=== PATIENT | female | born 1990 | race Two or more races ===

== ENCOUNTER 2021-05-08 14:30 | Inpatient (IN) | payer OTHER ==
[~2021-05-08] VITALS: Ht 167.6 cm; Wt 3.6 kg
[2021-05-13] MEDS ORDERED: PRENATAL TABLE1 EAC1 PO (00:11)
== END 2021-05-16 14:29 | DRG 788 ==
LOC: LDR 05-12 23:15 → O/R 05-13 14:19 → OB/GYN 05-13 15:42
PROVIDERS: ADMIT Specialist; ATTEND Specialist
PROC: 3E0P7VZ Introduction of Hormone into Female Reproductive, Via Natural or Artificial Opening (ICD-10-PCS; 2021-05-12)
PROC: 4A1HXFZ Monitoring of Products of Conception, Cardiac Rhythm, External Approach (ICD-10-PCS; 2021-05-13)
PROC: 10D00Z1 Extraction of Products of Conception, Low, Open Approach (ICD-10-PCS; principal; 2021-05-13 13:00)
DX: O65.8 Obstructed labor due to other maternal pelvic abnormalities (principal); O42.02 Full-term premature rupture of membranes, onset of labor within 24 hours of rupture; Z3A.38 38 weeks gestation of pregnancy; Z37.0 Single live birth; Z20.822 Contact with and (suspected) exposure to COVID-19